=== PATIENT | male | born 1970 | race Caucasian/White ===

== ENCOUNTER 2019-09-07 09:15 | Emergency (ER) | payer BC, OTHER, SELFPAY ==
[~2019-09-07] VITALS: Ht 195.6 cm; Wt 140.2 kg
--- NOTE | 2019-09-07 09:31 | NUR ---
Pt pushed in wheelchair from triage to room. Family walking beside. NADN. No obvious defecits observed.
[2019-09-07] MEDS ORDERED: LORazepam 1MG TABLET ONE (09:50)
[2019-09-07] MEDS ORDERED: ASPIRIN 81 MG TABLET CHEW ONE (09:51)
[2019-09-07] MEDS ORDERED: LORazepam 1MG TABLET PO ONE (10:00)
[2019-09-07] MEDS ORDERED: ASPIRIN 81 MG TABLET CHEW PO ONE (10:00)
[2019-09-07 10:14] LABS: BASOPHILS # (AUTO) 0.03 x10^3/uL (0-0.1); BASOPHILS % (AUTO) 0 % (0-1); EOSINOPHILS # (AUTO) 0.19 x10^3/uL (0-0.4); EOSINOPHILS % (AUTO) 2 % (1-7); LYMPHOCYTES # (AUTO) 0.75 x10^3/uL (1-3.4); LYMPHOCYTES % (AUTO) 7 % (22-44); MD NO; MEAN CORPUSCULAR HEMOGLOBIN 31.8 pg (27.5-34.5); MEAN CORPUSCULAR HGB CONC 33.4 g/dL (33.2-36.2); MEAN CORPUSCULAR VOLUME 94.9 fL (81-97); MEAN PLATELET VOLUME 8.3 fL (7.4-10.4); MONOCYTES # (AUTO) 0.59 x10^3/uL (0.2-0.8); MONOCYTES % (AUTO) 6 % (2-9); NEUTROPHILS % (AUTO) 86 % (42-75); PLATELET COUNT 184 x10^3/uL (130-400); RED BLOOD COUNT 4.69 x10^6/uL (4.38-5.82); RED CELL DISTRIBUTION WIDTH 13.2 % (9.4-14.8)
[2019-09-07 10:27] LABS: ALBUMIN 3.8 g/dL (3.4-5.0); ANION GAP 9 mmol/L (5-15); CALCIUM 8.6 mg/dL (8.5-10.1); CHLORIDE 105 mmol/L (98-107)
[2019-09-07 10:33] LABS: ALANINE AMINOTRANSFERASE 52 U/L (12-78); ALKALINE PHOSPHATASE 81 U/L (45-117); BILIRUBIN,TOTAL 1.1 mg/dL (0.2-1.0); CREATININE 1.13 mg/dL (0.7-1.3); TOTAL PROTEIN 7.7 g/dL (6.4-8.2); TROPONIN I < 0.015 ng/mL (0.000-0.045)
[2019-09-07 11:16] VITALS: BP 148/81
--- NOTE | 2019-09-07 11:33 | NUR ---
Patient/Caregiver given discharge instructions and they have confirmed that they understand the instructions. Patient ambulatory with steady gait. Pt left with all personal belongings, d/c paperwork, and Rx. NADN. No needs expressed.
== END 2019-09-07 11:36 | disposition home or self-care (01) ==
LOC: ED 09:51
DX: K08.89 Other specified disorders of teeth and supporting structures (principal); F41.1 Generalized anxiety disorder
CPT/HCPCS: 36415; 71045; 80053; 84484; 85025; 87081; 87880; 93005; 99284